=== PATIENT | male | born 1970 | race Caucasian/White ===

== ENCOUNTER 2017-03-05 08:36 | Emergency (ER) | payer OTHER ==
[~2017-03-05] VITALS: Ht 180.3 cm; Wt 90.9 kg
[~2017-03-05 08:36] MED LIST: CITA20TA11 PO; OMEP20CA11 PO
[2017-03-05 08:39] VITALS: BP 141/93; PULSE 87; RESP 16; O2SAT 97
--- NOTE | 2017-03-05 08:47 | ED.REPORT ---
HPI-Back Pain 40 and Over Date of Service Mar 05, 2017 ED Provider: Khai Haney MD The patient is an otherwise healthy 46 year old male who presents to the ED due to back pain onset five days ago. 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 This pain was much more severe then normal usual. He describes the pain as, "sharp and stabbing." Movement exacerbates the pain. He denies dysuria, hematuria, incontinence, numbness and weakness. He has been taking ibuprofen with no relief. Nursing Notes Stated Complaint: BACK RIGHT PAIN Chief Complaint: Back Pain or Injury Nursing Notes Reviewed: Yes Allergies: Coded Allergies: No Known Allergies (Verified Allergy, Unknown, 04/07/16) Scheduled Citalopram (Citalopram) 20 Mg Tablet 20 MG PO QPM Omeprazole (Omeprazole) 20 Mg Capsule.dr 20 MG PO QPM General Time Seen by MD: 08:46 Chief Complaint Back pain Hx Obtained From: Patient Arrived By: Walk-in Sudden in Onset?: Yes Onset Occurred: 5 days ago Symptom Duration: Since onset Location: : Generalized Quality: Painful Radiation: : Does not radiate Severity: Current: Mild Recent Healthcare: No recent doctor visit, No recent hospitalization Similar Sx Previous: Yes Past Medical History Past Medical History Kidney stones Anxiety Past Surgical History ORIF tibia hx of lithotripsy and ureteral stent Smoking History Current Every Day Smoker Social History Drug Use: Denies drug use Other Social History: Local resident Ambulatory Status Independent Review of Systems Male: Denies Dysuria, Denies Hematuria, Denies Incontinence Musculoskeletal: Reports: Back pain Complete sys rev & neg: except as marked. Physical Exam Initial Vital Signs Vital Signs (First) Date Time Temp Pulse Resp B/P Pulse Ox O2 Delivery O2 Flow Rate FiO2 03/05/17 08:39 36.6 87 16 141/93 97 Room Air Initial VS: Reviewed Head / Eyes: Atraumatic, Normocephalic ENT: Mucous membranes moist, Conjunctiva normal Neck: Supple, Non-tender General/Constitutional: Awake, Alert Respiratory / Chest: Atraumatic, Breath sounds NL, Breath sounds = bilat Cardiovascular: Heart rate NL, Regular rhythm, Heart sounds NL Abdomen: Atraumatic, Soft, Non-tender Back: Atraumatic, Inspection NL, No midline vertebral tend, No paraspinal tenderness redness to right flank Neurologic: Oriented X3, Speech NL, No motor deficits Lower Extremity / Pelvis / MS: Atraumatic, Inspection NL normal dorsal flexion normal planar flexion at ankles Re-Eval/Medical Decision Counseled Regarding: Diagnosis, Lab results, Need for follow-up, When/why to return to ED Discharge & Departure Impression: Primary Impression: Lumbosacral strain Encounter type: subsequent encounter Qualified Code: S39.012D - Strain of muscle, fascia and tendon of lower back, subsequent encounter Disposition: Home Discharge Condition All VS Reviewed: Yes Condition: Stable Patient Instructions: Low Back Strain (ED) Additional Instructions: Your symptoms are most likely due to musculoskeletal pain but not as likely from kidney stone. I would change my mind about this if you began seeing blood in your urine. I am going to prescribe you dexamethasone for to decrease the inflammation in your back. Use Tylenol up to 1000 mg 4 times a day, as needed. You cannot take Ibuprofen while on the steroid (dexamethasone). I will also give you a small supply of pain medication to use as needed. Do not drive or drink alcohol while taking the pain medication. Follow up with your primary care physician not better in a few days. We have referred due to a doctor in [place] for follow-up as needed, but you could also follow-up with Dr. Marlow. Return to the Emergency Department for any new or worsening symptoms such as persistent numbness or tingling, weakness or incontinence. I hope you feel better soon! Referrals: Brandon Santillan DO (PCP) Francy Attestation Portion of this note were transcribed by Reema Ku. I, Dr. Haney, personally performed the history, physical exam, and medical decision-making: I reviewed and confirmed the accuracy for the information in the transcribed note. Signed by: francy Cheung, 03/25/17 1000 copies to: Brandon Santillan Kirk H MD Mar 05, 2017 08:47 Reema Ku Mar 05, 2017 09:02
[2017-03-05] MEDS ORDERED: OXYC1TAB24 PO (09:33)
[2017-03-05] MEDS ORDERED: DEXA6TAB PO (09:33)
[2017-03-05 09:59] VITALS: BP 149/92; PULSE 71; RESP 20; O2SAT 98
== END 2017-03-05 10:00 | disposition home or self-care (01) ==
LOC: SED 08:36
DX: S39.012A Strain of muscle, fascia and tendon of lower back, initial encounter (principal); X50.0XXA Overexertion from strenuous movement or load, initial encounter; Y93.9 Activity, unspecified; Y92.9 Unspecified place or not applicable; Y99.0 Civilian activity done for income or pay; F17.200 Nicotine dependence, unspecified, uncomplicated
CPT/HCPCS: 96372; 99283; J1885

== ENCOUNTER 2017-04-03 23:39 | Emergency (ER) | payer OTHER ==
[~2017-04-03] VITALS: Ht 177.8 cm; Wt 95.5 kg
[~2017-04-03 23:39] MED LIST changes: +DEXA6TAB PO; +OXYC1TAB24 PO
[2017-04-03 23:42] VITALS: BP 145/87; PULSE 84; RESP 18; O2SAT 97
--- NOTE | 2017-04-04 00:33 | ED.REPORT ---
HPI-Back Pain 40 and Over Date of Service April 04, 2017 ED Provider: Dylon Hannah MD A 46 year old male with a history of kidney stones and anxiety presents to the ED complaining of lower right back pain radiating into the abdomen. The pt was seen several weeks ago for a sharp lower back pain that he believed was a torn muscle. The pain faded with rest, but returned on 04/01/2017. The pain is sharper and significantly more painful and is now radiating below his ribs and into his abdomen. This is accompanied by nausea and vomiting. He states that this does not feel like a kidney stone. The pt's daughter recently was diagnosed with chicken pox and the pt has not been vaccinated. Nursing Notes Stated Complaint: SIDE PAIN Chief Complaint: Back Pain or Injury Nursing Notes Reviewed: Yes Allergies: Coded Allergies: No Known Allergies (Verified Allergy, Unknown, 04/03/17) Scheduled Citalopram (Citalopram) 20 Mg Tablet 20 MG PO QPM Dexamethasone (Dexamethasone) 6 Mg Tablet 6 MG PO DAILY Omeprazole (Omeprazole) 20 Mg Capsule.dr 20 MG PO QPM Prednisone (PredniSONE) 20 Mg Tablet 20 MG PO TID Valacyclovir HCl (Valtrex) 1,000 Mg Tablet 1,000 MG PO DAILY Scheduled PRN oxyCODONE-Acetaminophen 5-325 mg (oxyCODONE-Acetaminophen 5-325 mg) 1 Each Tablet 1 TAB PO Q4H PRN PRN For Pain oxyCODONE-Acetaminophen 5-325 mg (oxyCODONE-Acetaminophen 5-325 mg) 1 Each Tablet 1-2 TAB PO Q6H PRN PRN For Pain General Time Seen by MD: 00:29 Chief Complaint Back pain Hx Obtained From: Patient Arrived By: Walk-in Sudden in Onset?: No Onset Occurred: 3 days ago Symptom Duration: Since onset Recent Healthcare: No recent hospitalization, Recent doctor visit Similar Sx Previous: No Past Medical History Past Medical History Kidney stones Anxiety Past Surgical History ORIF tibia hx of lithotripsy and ureteral stent Smoking History Current Every Day Smoker Social History Drug Use: Denies drug use Other Social History: Good social support, Local resident Ambulatory Status Independent Review of Systems Constitutional: Denies: Fever Respiratory: Denies: Non-productive cough Cardiovascular: Denies: Chest pain GI: Reports: Abdominal pain, Nausea, Vomiting Musculoskeletal: Reports: Back pain Complete sys rev & neg: except as marked. Physical Exam Initial Vital Signs Vital Signs (First) Date Time Temp Pulse Resp B/P Pulse Ox O2 Delivery O2 Flow Rate FiO2 04/03/17 23:42 36.7 84 18 145/87 97 Room Air Initial VS: Reviewed, Vital signs normal General/Constitutional: Awake, Alert, Well hydrated Respiratory / Chest: Atraumatic, Breath sounds NL, Breath sounds = bilat, No respiratory distress Cardiovascular: Heart rate NL, Regular rhythm, Heart sounds NL Abdomen: Atraumatic, Soft, Non-tender Back: Atraumatic, Full range of motion right CVAT Neurologic: Oriented X3, Speech NL, No motor deficits, No sensory deficits Neck: Atraumatic, Supple, Full range of motion Lower Extremity / Pelvis / MS: Atraumatic, Full range of motion Skin: Atraumatic, Color NL, Warm, Dry no rash visible Head / Eyes: Atraumatic, Normocephalic, PERRL, EOMI ENT: Atraumatic, Airway patent, Mucous membranes moist Upper Extremity / MS: Atraumatic, Full range of motion Psychiatric: Affect NL, Mood NL Interpretation & Diagnostics Lab Results Interpretation Test 04/04/17 03:00 Urine Color Yellow (YELLOW) Urine Appearance Clear (CLEAR,HAZY) Urine pH 6.0 (5.0-8.0) Urine Specific Kennard 1.025 (1.003-1.035) Urine Protein Negativemg/dL (NEG,TRACE) Urine Glucose (UA) Negativemg/dL (NEGATIVE) Urine Ketones Negativemg/dL (NEGATIVE) Urine Occult Blood Negative (NEGATIVE) Urine Nitrite Negative (NEGATIVE) Urine Bilirubin Negative (NEGATIVE) Urine Urobilinogen Normalmg/dL (NORMAL) Urine Leukocyte Esterase Negative (NEGATIVE) Urine RBC 0-2/hpf (0-2) Urine WBC 0-5/hpf (0-5) Urine Epithelial Cells Occasional/hpf (NONE-MOD) Urine Crystals None seen (NONE SEEN) Urine Bacteria None/hpf (NONE-FEW) Urine Hyaline Casts None/lpf (NONE) Urine Granular Casts None seen (NONE SEEN) Urine Waxy Casts None seen (NONE SEEN) Urine Red Blood Cell Casts None seen (NONE SEEN) Urine White Blood Cell Casts None seen (NONE SEEN) Urine Mucus None seen (None Seen) Urine Trichomonas None seen (NONE SEEN) Urine Yeast None (NONE SEEN) Urinalysis Comment None Urine Culture Reflexed Not indicated Lab Results Interpretation: Urine is normal CT Abd / Pelvis Interpretation IMPRESSION: No CT findings to explain the patient's clinical symptoms. Interpretation / Wet Read by: Interpret - Radiologist Re-Eval/Medical Decision Med Decision/Clinical Course 46-year-old male who complains of right flank pain. Closer questioning reveals that he has pain in an intercostal nerve distribution. There is no rash present. CT KUB is completely normal. There is no hematuria or pyuria. He is being discharged home with prescriptions for Valtrex and prednisone to get filled only if he develops a rash. Source of Hx: Old records Re-Evaluation/Progress #1: Time of Eval: 02:26 Patient Status: Condition improved Re-Evaluation/Progress Note: Pt rechecked, who is resting comfortably. He is informed of his radiology results. Further treatment is discussed. Re-Evaluation/Progress #2: Time of Eval: 03:23 Patient Status: Condition improved Re-Evaluation/Progress Note: Pt rechecked, who is feeling significantly better. The diagnosis and plan for discharge are discussed. The pt understands and agrees with the plan. All questions are addressed at this time. Counseled Regarding: Diagnosis, Lab results, Need for follow-up, When/why to return to ED Discharge & Departure Impression: Primary Impression: Flank pain Disposition: Home Discharge Condition All VS Reviewed: Yes Condition: Stable Patient Instructions: Herpes Zoster (ED) Additional Instructions: There is no evidence of kidney stone or other abnormality on the CT scan. The distribution and character of this pain sound like early shingles (zoster). I have given new prescriptions for prednisone and acyclovir. If a rash develops, that confirms my suspicions and I would recommend that you start both of those medications. Follow up as needed if you have worsening pain. Referrals: [facility] Scribjanneth Attestation Portions of this note were transcribed by Denisse Coon. I, Dr. Hannah personally performed the history, physical exam and medical decision-making; I reviewed and confirmed the accuracy of the information in the transcribed note. Signed by: Kandy Fraire, 04/04/17 and 0351. copies to: [facility] Dylon Hannah MD April 04, 2017 00:33 DENISSE COON April 04, 2017 00:41
[2017-04-04] MEDS ORDERED: oxyCODONE-Acetamin 5-325 mg Tablet PO ONE (02:30)
[2017-04-04 03:14] LABS: APPEARANCE,URINE CLEAR (CLEAR,HAZY); COLOR,URINE YELLOW (YELLOW); OCCULT BLOOD,URINE NEGATIVE (NEGATIVE); UROBILINOGEN,URINE NORMAL (NORMAL)
[2017-04-04] MEDS ORDERED: VALA1000 PO (03:48)
[2017-04-04] MEDS ORDERED: PRE20 PO (03:48)
[2017-04-04] MEDS ORDERED: OXYC1TAB24 PO (04:14)
[2017-04-04 04:17] VITALS: BP 151/90; PULSE 69; RESP 16; O2SAT 97
--- NOTE | 2017-04-04 08:38 | DRSVH ---
PROCEDURE: CT KUB ([id number]) INDICATIONS: right flank pain TECHNIQUE: Noncontrast 5 mm thick sections acquired from the diaphragms to the symphysis. 5 mm thick coronal an d sagittal reformats were then performed. For radiation dose reduction, the following was used: aut omated exposure control, adjustment of mA and/or kV according to patient size. COMPARISON: CT KUB 04/07/2016 FINDINGS: Preliminary report by director of digital platforms radiology Image quality: Excellent. Lung bases: Lung bases are clear. Heart size is normal. Urinary system: Both kidneys are normal in size. No kidney stones. No hydronephrosis or perinephri c fat stranding. Both ureters appear non-dilated throughout their expected courses. Bladder wall th ickness is normal; no calcified bladder stones. Other solid organs: Liver and spleen are normal in size. Gallbladder appears contracted. Pancreas is normal in contours. No adrenal nodules. Peritoneum and bowel: Unenhanced bowel loops demonstrate normal wall thickness and caliber. Normal a ppendix, best seen on coronal image 28. No free fluid or air. Nodes and vessels: No retroperitoneal or mesenteric adenopathy by size criteria. Aorta and inferior vena cava are normal in caliber. Abdominal wall: No ventral hernias. Pelvis: No free pelvic fluid. No inguinal hernias or adenopathy. Bones: No suspicious bony lesions. No vertebral body compression fractures. IMPRESSION: 1. No nephrolithiasis or hydronephrosis. Source of right flank pain is not seen. 2. Gallbladder is contracted. No gallstones identified. 3. Normal appendix is visualized Findings concordant with the preliminary report Dictated by: Medhat Finney M.D. on 04/04/2017 at 8:31 Approved by: Medhat Finney M.D. on 04/04/2017 at 8:37
== END 2017-04-04 04:10 | disposition home or self-care (01) ==
LOC: SED 23:39
DX: R10.31 Right lower quadrant pain (principal); F17.200 Nicotine dependence, unspecified, uncomplicated; Z79.899 Other long term (current) drug therapy
CPT/HCPCS: 74176; 81000; 96374; 99284; J1885